=== PATIENT | female | born 1945 | race Caucasian/White ===

== ENCOUNTER 2020-07-19 19:08 | Inpatient (IN) | payer BC, OTHER ==
[2020-07-19] MEDS ORDERED: SODIUM CHLORIDE 1,000 ML IV SCH (19:45)
[2020-07-19 20:55] LABS: BASO % 0.4 % (0-2.0); EOS % 0.1 % (0-4.5); HEMATOCRIT 36.4 % (32.4-45.2); LYMPH % 4.9 % (8-40); MCH 32.2 pg (25.7-33.7); MCHC 33.1 g/dl (32.0-36.0); MEAN CELL VOLUME 97.3 fl (80-96); MEAN PLT VOLUME 8.1 fl (7.5-11.1); MONO % 7.1 % (3.8-10.2); NEUT % 87.5 % (42.8-82.8); PLATELET COUNT 628 K/MM3 (134-434); RBC 3.74 M/mm3 (3.60-5.2); RDW 13.9 % (11.6-15.6)
[2020-07-19 21:09] LABS: INR 1.41 (0.83-1.09); PROTHROMBIN TIME (PATIENT) 17.2 SEC (9.7-13.0)
[2020-07-19 21:11] LABS: ACTIVATED PTT 32.4 SECONDS (25.2-36.5)
[2020-07-19] MEDS ORDERED: DEXAMETHASONE SOD PHOSPHATE 10 MG/1 ML VIAL IVPUSH ONE (21:16)
[2020-07-19] MEDS ORDERED: LIDOCAINE 5% TOPICAL PATCH TP ONE (21:50)
[2020-07-19] MEDS ORDERED: LIDOCAINE 5% TOPICAL PATCH ONE (22:00)
[2020-07-19] MEDS ORDERED: DEXAMETHASONE SOD PHOSPHATE 10 MG/1 ML VIAL ONE (22:00)
[2020-07-19 22:04] LABS: CHLORIDE 100 mmol/L (98-107); POTASSIUM 4.9 mmol/L (3.5-5.1); SODIUM 134 mmol/L (136-145)
[2020-07-19 22:09] LABS: CALCIUM 8.5 mg/dL (8.5-10.1)
[2020-07-19 22:10] LABS: ALBUMIN 1.9 g/dl (3.4-5.0); ANION GAP 12 MMOL/L (8-16); CO2 23 mmol/L (21-32); GLUCOSE,RANDOM 113 mg/dL (74-106)
[2020-07-19 22:12] LABS: CREATININE 1.3 mg/dL (0.55-1.3); SGPT/ALT 21 U/L (13-61)
[2020-07-19 22:14] LABS: BILIRUBIN,TOTAL 0.4 mg/dL (0.2-1); TOT PROT 6.6 g/dl (6.4-8.2)
[2020-07-19 22:15] LABS: ALK PHOS 99 U/L (45-117)
[2020-07-19 22:18] LABS: BLOOD UREA NITROGEN 48.6 mg/dL (7-18)
[2020-07-19 22:26] LABS: SGOT/AST 48 U/L (15-37)
[2020-07-19 23:32] LABS: BILIRUBIN,DIRECT 0.2 mg/dL (0.0-0.2)
[2020-07-20 00:12] LABS: LDH 392 U/L (84-246)
[2020-07-20 02:04] LABS: COCAINE, UR NEGATIVE ng/ml (CUTOFF=300); METHADONE, UR NEGATIVE ng/ml (CUTOFF=300); URINE BENZODIAZEPINES NEGATIVE ng/ml (CUTOFF=200)
[2020-07-20 02:05] LABS: OPIATES, URI NEGATIVE ng/ml (CUTOFF=300); PHENCYCLIDINE,URINE NEGATIVE ng/ml (CUTOFF=25)
[2020-07-20 02:09] LABS: URINE AMPHETAMINES NEGATIVE ng/ml (CUTOFF=500); URINE BARBITURATES NEGATIVE ng/ml (CUTOFF=200)
[2020-07-20 02:45] LABS: URINE APPEARANCE CLOUDY; URINE COLOR YELLOW; URINE GLUCOSE (UA) NEGATIVE (NEGATIVE); URINE KETONE 15 mg/dl (NEGATIVE)
[2020-07-20 02:46] LABS: PH,URINE 5.5 (5.0-8.0); URINE BILIRUBIN NEGATIVE (NEGATIVE); URINE PROTEIN TRACE (NEGATIVE)
[2020-07-20 02:47] LABS: EPI CELLS 247.2 /uL (0-25.1); HYALINE CASTS 10.14 /uL (0-3.1); URINE BACTERIA 8894.5 /uL (0-1359); URINE LEUK ESTERASE 2+ (NEGATIVE); URINE NITRITE POSITIVE (NEGATIVE); URINE WBC 98.3 /uL (0-25.8)
[2020-07-20] MEDS ORDERED: CEFTRIAXONE 1,000 MG in DEXTROSE 5%-WATER - 50 ML IVPB ONE (03:01)
[2020-07-20] MEDS ORDERED: ACETAMINOPHEN 1000 MG/100 ML VIAL (NON FORMULARY) IVPB ONE (03:26)
[2020-07-20] MEDS ORDERED: CEFTRIAXONE 1 GM/50 ML BAG ONE ×2 (03:30→08:40)
[2020-07-20] MEDS ORDERED: ACETAMINOPHEN INJECTION 100 ML IVPB ONE (04:06)
[2020-07-20] MEDS: SODIUM CHLORIDE 1,000 ML IV SCH (06:21)
[2020-07-20 06:36] LABS: BASO % 0.2 % (0-2.0); HEMOGLOBIN 11.6 GM/dL (10.7-15.3); LYMPH % 2.6 % (8-40); MCH 32.1 pg (25.7-33.7); MCHC 33.2 g/dl (32.0-36.0); MEAN CELL VOLUME 96.8 fl (80-96); MEAN PLT VOLUME 7.7 fl (7.5-11.1); MONO % 4.1 % (3.8-10.2); NEUT % 93.1 % (42.8-82.8); PLATELET COUNT 524 K/MM3 (134-434); RBC 3.62 M/mm3 (3.60-5.2); WHITE BLOOD COUNT 16.4 K/mm3 (4.0-10.0)
[2020-07-20 07:14] LABS: POTASSIUM 4.6 mmol/L (3.5-5.1)
[2020-07-20 07:18] LABS: ALBUMIN 1.6 g/dl (3.4-5.0); BLOOD UREA NITROGEN 43.3 mg/dL (7-18); CALCIUM 7.4 mg/dL (8.5-10.1)
[2020-07-20 07:22] LABS: CREATININE 1.1 mg/dL (0.55-1.3); PHOSPHOROUS 3.8 mg/dL (2.5-4.9)
[2020-07-20 07:23] LABS: BILIRUBIN,TOTAL 0.4 mg/dL (0.2-1); TOT PROT 5.6 g/dl (6.4-8.2)
[2020-07-20] MEDS ORDERED: ENOXAPARIN NA (PORCINE) 40 MG/0.4 ML DISP.SYRIN SQ ONE (08:40)
[2020-07-20 09:44] LABS: ANISOCYTOSIS 1+; MACROCYTOSIS 0; PLATELET ESTIMATE INCREASED
[2020-07-20] MEDS: ENOXAPARIN NA (PORCINE) 40 MG/0.4 ML DISP.SYRIN SQ SCH (09:51)
[2020-07-20] MEDS ORDERED: LIDOCAINE PATCH REMOVAL MC SCH (10:00)
[2020-07-20] MEDS ORDERED: MORPHINE SULFATE 2 MG/ML VIAL IVPUSH PRN ×2 (15:23→17:48)
[2020-07-20 16:19] VITALS: BMI 15.6
[2020-07-20] MEDS ORDERED: morphine SULFATE 4 MG/ML VIAL IVPUSH ONE (17:47)
[2020-07-20] MEDS ORDERED: morphine SULFATE 4 MG/ML VIAL IVPUSH PRN (17:47)
[2020-07-20] MEDS: ACETAMINOPHEN 1000 MG/100 ML VIAL (NON FORMULARY) IVPB PRN (22:53)
[2020-07-21] MEDS: MELATONIN 5 MG TABLETS PO SCH ×2 (00:18→21:55)
[2020-07-21] MEDS: ACETAMINOPHEN 1000 MG/100 ML VIAL (NON FORMULARY) IVPB PRN (05:20)
[2020-07-21] MEDS: SODIUM CHLORIDE 1,000 ML IV SCH ×2 (06:06→09:52)
[2020-07-21] MEDS ORDERED: LEVOTHYROXINE NA 75 MCG TABLET (FP) PO SCH (07:00)
[2020-07-21] MEDS ORDERED: morphine SULFATE 4 MG/ML VIAL IVPUSH PRN (09:24)
[2020-07-21] MEDS ORDERED: DEXTROSE 5%-WATER - 50 ML IVPB ONE (09:56)
[2020-07-21] MEDS ORDERED: cefTRIAXone SODIUM 1 GM VIAL ONE (09:56)
[2020-07-21] MEDS: ENOXAPARIN NA (PORCINE) 40 MG/0.4 ML DISP.SYRIN SQ SCH (09:58)
[2020-07-21] MEDS: HYDROmorphone HCl 2 MG/ML VIAL IVPB PRN ×3 (09:58→23:09)
[2020-07-21] MEDS ORDERED: CEFTRIAXONE 1 GM in DEXTROSE 5%-WATER - 50 ML IVPB SCH (10:00)
[2020-07-21 14:40] VITALS: BP 99/46; PULSE 100; TEMP 98
== END 2020-07-21 23:40 | disposition expired | DRG 180 ==
LOC: JER 19:08 → JERBED 19:44 → J6S 07-20 12:15 → J7W 07-21 17:07
PROVIDERS: ADMIT Internal Medicine; ATTEND Student in an Organized Health Care Education/Training Program
DX: D49.1 Neoplasm of unspecified behavior of respiratory system (principal); J96.01 Acute respiratory failure with hypoxia; N39.0 Urinary tract infection, site not specified; R64 Cachexia; Z68.1 Body mass index [BMI] 19.9 or less, adult; E46 Unspecified protein-calorie malnutrition; R53.1 Weakness; E03.9 Hypothyroidism, unspecified; C50.919 Malignant neoplasm of unspecified site of unspecified female breast; D72.829 Elevated white blood cell count, unspecified; R91.8 Other nonspecific abnormal finding of lung field; D47.3 Essential (hemorrhagic) thrombocythemia; E88.09 Other disorders of plasma-protein metabolism, not elsewhere classified; W18.30XA Fall on same level, unspecified, initial encounter; Y92.098 Other place in other non-institutional residence as the place of occurrence of the external cause; Z90.5 Acquired absence of kidney; Z85.528 Personal history of other malignant neoplasm of kidney; B96.1 Klebsiella pneumoniae [K. pneumoniae] as the cause of diseases classified elsewhere
CPT/HCPCS: 36415; 70450-TC; 71045-TC-FY; 71250-TC; 72125-TC; 72170-TC-FY; 74176-TC; 80053; 80307; 81003; 82248; 82550; 82728; 83605; 83615; 83735; 84100; 84443; 84484; 85025; 85379; 85610; 85730; 86140; 87040; 87086; 87186; 87804; 93005; 93010; 99291; C9803; J0131; J1100; U0003